=== PATIENT | male | born 2000 | race African-American/Black ===

== ENCOUNTER 2020-09-28 09:04 | Emergency (ER) | payer MEDICAID, OTHER ==
[~2020-09-28] VITALS: Ht 177.8 cm; Wt 90.0 kg
[2020-09-28 09:10] VITALS: BP 127/82
[2020-09-28] MEDS ORDERED: PREDNISONE 20MG TABLET PO ONE (10:00)
[2020-09-28] MEDS ORDERED: MED4 MT (11:18)
== END 2020-09-28 11:43 | disposition home or self-care (01) ==
LOC: ER 09:06
DX: L25.9 Unspecified contact dermatitis, unspecified cause (principal)
CPT/HCPCS: 99283; J7512